=== PATIENT | male | born 1960 | race Caucasian/White ===

== ENCOUNTER 2017-05-06 11:57 | Emergency (ER) | payer SELFPAY ==
[~2017-05-06] VITALS: Ht 170.2 cm; Wt 78.0 kg
[2017-05-06 12:53] VITALS: BP 133/86; Ht 170.2 cm; Wt 78.0 kg
== END 2017-05-06 13:37 | disposition left against medical advice (07) ==
LOC: ED 11:57
DX: Z53.21 Procedure and treatment not carried out due to patient leaving prior to being seen by health care provider (principal)